=== PATIENT | male | born 2000 | race Hispanic/Latino ===

== ENCOUNTER 2021-09-13 15:23 | Emergency (ER) | payer OTHER ==
[~2021-09-13] VITALS: Ht 170.2 cm; Wt 67.6 kg
[2021-09-13] MEDS ORDERED: AMPICILLIN/SULBAC 1.5GM VIAL IV STA (16:05)
[2021-09-13] MEDS ORDERED: LIDOCAINE HCL 1% 10 ML VIAL ONE (16:19)
[2021-09-13] MEDS ORDERED: AMPICILLIN/SULBAC 1.5GM VIAL ONE (17:09)
[2021-09-13] MEDS ORDERED: 0.9%NACL 100ML 100 ML ONE (17:10)
[2021-09-13] MEDS ORDERED: AMP/SULBAC 1.5GM+NS 100ML 100 ML IV ONE (17:30)
[2021-09-13] MEDS ORDERED: LIDOCAINE HCL-MPF 2% 5ML VIAL IV SCH (17:30)
[2021-09-13] MEDS ORDERED: DIPH,PERTUSS(ACELL),TET VAC/PF 0.5 ML VIAL IM ONE (17:30)
[2021-09-13] MEDS ORDERED: DICL35CA3 PO (18:22)
[2021-09-13] MEDS ORDERED: AMOX-429 PO (18:22)
[2021-09-13 19:02] VITALS: BP 126/78
== END 2021-09-13 19:03 | disposition home or self-care (01) ==
LOC: EDH 15:23
DX: L03.012 Cellulitis of left finger (principal)
CPT/HCPCS: 26010; 90471; 90715; 96365; 99284; J0295; J3490